=== PATIENT | male | born 1970 | race Asian ===

== ENCOUNTER → 2018-05-27 | Outpatient (CLI) | payer OTHER ==
--- NOTE | 2018-05-27 16:11 | KCIC ---
PA chest, 05/27/2018: HISTORY: Positive PPD Comparison is made to a study from 03/22/2015. The heart size is normal. There are couple of tiny calcified pulmonary granulomata, better demonstrated on the prior exam. No active lung disease is seen. There is no evidence of pleural fluid. IMPRESSION: No acute abnormality is detected. Electronically signed by: Arden Carvajal MD (05/27/2018 4:08 PM) [facility]
== END | disposition home or self-care (01) ==
LOC: KCIC 15:44
PROVIDERS: ATTEND Family Medicine
DX: R76.11 Nonspecific reaction to tuberculin skin test without active tuberculosis (principal)
CPT/HCPCS: 71045